=== PATIENT | female | born 1945 | race Caucasian/White ===

== ENCOUNTER 2017-05-07 19:36 | Emergency (ER) | payer MEDICARE ==
[~2017-05-07] VITALS: Ht 157.4 cm; Wt 78.9 kg
[~2017-05-07 19:36] MED LIST: IBU-200200 MG PO; PROTONIX20 MG PO; VICODIN 5/500 505 MG; VITAMIN D22000 UNIT PO; ZANTAC 300300 MG PO; ZETIA10 MG
[2017-05-07] MEDS ORDERED: OSTERA TABLET1 EACH PO (20:02)
[2017-05-07 20:43] LABS: BASO % 0.1 % (0.0-1.0); HEMATOCRIT 40.7 % (37.0-47.0); HEMOGLOBIN 13.4 g/dl (12.0-16.0); LYMPH # 1.3 10*3/uL (1.3-4.4); LYMPH % 18.7 % (27.0-41.0); MEAN CELL VOLUME 90.4 fl (81.0-99.0); MEAN CORPUSCULAR HGB 29.8 pg (27.0-31.0); MEAN CORPUSCULAR HGB CONC 32.9 g/dl (33.0-37.0); MEAN PLATELET VOLUME 9.1 fl (9.6-12.3); MONO # 0.1 10*3/uL (0.1-1.0); MONO % 1.2 % (3.0-9.0); NEUT # 5.5 10*3/uL (2.3-7.9); NEUT % 79.6 % (47.0-73.0); PLATELET COUNT AUTOMATED 282 10*3/uL (130-400); RED CELL DISTRI WIDTH 13.7 % (0-14.5)
[2017-05-07 20:56] LABS: BUN 20 mg/dl (7-24); C-REACTIVE PROTEIN 0.96 MG/DL (0-0.3); CARBON DIOXIDE 24 mmol/L (21-32); CHLORIDE 104 mmol/L (98-107); EST GLOM FILT AFRICAN AMERICAN > 60 ml/min; GLUCOSE 128 mg/dL (65-99); POTASSIUM 4.3 mmol/L (3.5-5.1); SODIUM 140 mmol/L (136-145)
[2017-05-07] MEDS ORDERED: PREDNISONE20 M1 PO (22:34)
[2017-05-07] MEDS ORDERED: DIPHENHYDRAMINE50 M1 PO (22:34)
== END 2017-05-07 23:44 | disposition home or self-care (01) ==
LOC: ED 19:36
PROVIDERS: Emergency Medicine Emergency Medical Services
DX: T78.3XXA Angioneurotic edema, initial encounter (principal); L50.9 Urticaria, unspecified; Z91.030 Bee allergy status; Z88.0 Allergy status to penicillin; Z91.013 Allergy to seafood; Z91.018 Allergy to other foods; Z88.6 Allergy status to analgesic agent; Z79.899 Other long term (current) drug therapy

== ENCOUNTER → 2017-08-05 | Outpatient (CLI) | payer MEDICARE ==
[~2017-08-05] MED LIST changes: +DIPHENHYDRAMINE50 M1 PO; +OSTERA TABLET1 EACH PO; +PREDNISONE20 M1 PO
== END | disposition home or self-care (01) ==
LOC: CT 10:41
DX: K76.0 Fatty (change of) liver, not elsewhere classified (principal); K57.30 Diverticulosis of large intestine without perforation or abscess without bleeding; C85.10 Unspecified B-cell lymphoma, unspecified site; N28.89 Other specified disorders of kidney and ureter; Z90.49 Acquired absence of other specified parts of digestive tract; Z90.710 Acquired absence of both cervix and uterus

== ENCOUNTER → 2017-08-14 | Outpatient (CLI) | payer MEDICARE | END | disposition home or self-care (01) | LOC: MAMMO 01:27 | DX: Z12.31 Encounter for screening mammogram for malignant neoplasm of breast (principal) ==

== ENCOUNTER → 2017-09-13 | Day surgery (SDC) | payer MEDICARE ==
[~2017-09-13] VITALS: Ht 158.7 cm; Wt 77.1 kg
[~2017-09-13] MED LIST changes: +REGLAN5 MG PO
--- NOTE | ~2017-09-13 | O ---
[place], [place] OPERATIVE NOTE NAME: [id number] UNIT #: [id number] ROOM: DOCTOR: ROS HERNANDEZMITCHELL BIRTHDATE: [birth year] DOS: 09/13/2017 HISTORY OF PRESENT ILLNESS: A 72-year-old patient who was presented with chief complaint of persistent epigastric distress, dyspepsia, reflux into the throat and mouth. ALLERGIES: TO PENICILLIN, BEESTING AND PINEAPPLE. FAMILY HISTORY: Great aunt with gastric carcinoma. PAST SURGICAL HISTORY: Hysterectomy and lower back orthopedic management. PAST MEDICAL HISTORY: Non-Hodgkin lymphoma and hyperlipidemia, history of distal esophageal ulcer. ____ the patient on 300 mg Zantac a.m., p.m. The patient has been given previously Protonix apparently did not agree with her and she has lost her trust in using PPIs. PROCEDURE: Today's procedure part of investigation is panendoscopy plus biopsy and photographic series. PREMEDICATION: Versed and Diprivan. SCOPE: Olympus forward-viewing gastroscope Q10 video. REPORT: After putting the patient in the left lateral position and after application of lubricant to the scope, the scope was introduced thereafter under direct visualization, I advanced through the length of the esophagus without difficulty. Esophagus cervicothoracic distally carefully examined, small hiatal hernia was noticed. Gastric pouch seen. Antral biopsy obtained. Duodenal bulb, second and third part within normal limits. The patient was gradually extubated, tolerated procedure well. IMPRESSION: Small hiatal hernia, gastritis. PLAN AND DISCUSSION: The patient complaining of reflux symptomatology. She is on 300 mg of Zantac a.m. and p.m. This is what she feels comfortable with; however, I think under 50 mg a.m. and p.m. would be sufficed dose and add Gaviscon 1 tablet at bedtime. Elevation of the head of the bed 6 inches all time, we are going to give her a trial of prokinetics of 2.5 mg of Reglan an hour a.c. dinner to see if that would reduce her reflux symptoms as well and if she tolerates and if it is beneficial for her and is she does not have side effects, then we will increase to 5 mg a.c. dinner. I thank you very much indeed for your kind referral. [place], [place] OPERATIVE NOTE NAME: GRISELDA DALEY UNIT #: [id number] ROOM: DOCTOR: ROS HERNANDEZ,MITCHELL BIRTHDATE: [birth year] MITCHELL SOMMER MD CM:OPRECORD:OPERATIVE NOTE [id number] MITCHELL SOMMER MD 09/13/17 1859 interface
[2017-09-13 11:16] VITALS: BP 139/79
[2017-09-13 13:02] VITALS: BP 144/92
[2017-09-13 13:15] VITALS: BP 142/87
[2017-09-13 13:30] VITALS: BP 137/86
== END | disposition home or self-care (01) ==
LOC: SDC 09-11 08:00
DX: K29.50 Unspecified chronic gastritis without bleeding (principal); K44.9 Diaphragmatic hernia without obstruction or gangrene; K21.9 Gastro-esophageal reflux disease without esophagitis; Z88.0 Allergy status to penicillin; Z91.018 Allergy to other foods; Z90.710 Acquired absence of both cervix and uterus; Z98.890 Other specified postprocedural states; Z85.01 Personal history of malignant neoplasm of esophagus; Z82.49 Family history of ischemic heart disease and other diseases of the circulatory system; Z80.9 Family history of malignant neoplasm, unspecified; Z90.49 Acquired absence of other specified parts of digestive tract; E78.00 Pure hypercholesterolemia, unspecified

== ENCOUNTER → 2017-09-20 | Outpatient (CLI) | payer MEDICARE | END | disposition home or self-care (01) | LOC: US 10:33 | DX: K76.0 Fatty (change of) liver, not elsewhere classified (principal) ==

== ENCOUNTER → 2017-09-25 | Outpatient (CLI) | payer MEDICARE ==
[2017-09-25 13:05] LABS: ALBUMIN 3.4 gm/dl (3.1-4.5); ALKALINE PHOSPHATASE 77 U/L (45-117); BUN 13 mg/dl (7-24); CHLORIDE 106 mmol/L (98-107); CREATININE 0.64 mg/dL (0.55-1.02); LIPASE 94 U/L (73-393); POTASSIUM 4.9 mmol/L (3.5-5.1); SGOT/AST 12 IU/L (3-35); SGPT/ALT 21 U/L (12-78); SODIUM 139 mmol/L (136-145); TOTAL PROTEIN 7.2 gm/dL (6.4-8.2)
== END | disposition home or self-care (01) ==
LOC: LAB 12:05
PROVIDERS: Internal Medicine Gastroenterology
DX: K76.0 Fatty (change of) liver, not elsewhere classified (principal)

== ENCOUNTER → 2019-10-30 | Outpatient (CLI) | payer MEDICARE ==
[2019-10-30 11:15] VITALS: BP 118/67
== END | disposition home or self-care (01) ==
LOC: INJECTION 10:30
DX: M81.0 Age-related osteoporosis without current pathological fracture (principal); K21.9 Gastro-esophageal reflux disease without esophagitis; E78.00 Pure hypercholesterolemia, unspecified; Z87.891 Personal history of nicotine dependence

== ENCOUNTER → 2019-11-02 | Outpatient (CLI) | payer MEDICARE | END | disposition home or self-care (01) | LOC: RAD 11:26 | DX: M25.571 Pain in right ankle and joints of right foot (principal); M25.551 Pain in right hip ==